=== PATIENT | female | born 1980 | race Two or more races ===

== ENCOUNTER 2017-01-08 19:09 | Emergency (ER) | payer OTHER ==
[~2017-01-08] VITALS: Ht 162.6 cm; Wt 80.0 kg
--- NOTE | ~2017-01-08 | CR282 ---
[facility]. [facility] A Service of [facility] & [facility] RADIOLOGY TEXT RESULTS PATIENT: HUE HAWKINS LOCATION: SED : 78 UNIT #: [id number] AGE: [address]: Cata Murray MD SEX: F ORDER DR: [id number] [address] [address] [id number] E MR#: [id number] Acc #: [id number] NAME: HUE HAWKINS : 1980 SEX: F STUDY DATE/TIME: 01/08/2017 21:32 UNIT: SED ROOM: STUDY DESCRIPTION: CR Wrist Min 3 View Rt Attending Physician: Cata Murray M.D. Ordering Physician: Cata Murray M.D. Primary Care Physician: No Primary Care Physician MEDICAL IMAGING REPORT This report is preliminary unless electronic signature is present. EXAM Right wrist. INDICATIONS Cut wrist with glass 3 hours ago. FINDINGS Three views of the right wrist were obtained. No fractures or foreign bodies are identified. IMPRESSION No fracture or foreign body is identified. Dictated by... Rodrigo Gabriel M.D. THIS IS AN ELECTRONICALLY VERIFIED REPORT Rodrigo Gabriel M.D. at 01/09/2017 7:58 PM EVELINA/jerry TD: 01/09/2017 19:21 JOB #: [id number] MEDICAL IMAGING REPORT Page 1 of 1
[~2017-01-08 19:09] MED LIST: BROMFED DM COU118 ML PO; NAPROSYN500 MG PO; NO MEDICATIONS
== END 2017-01-08 22:34 | disposition home or self-care (01) ==
LOC: SED 19:09
DX: S61.511A Laceration without foreign body of right wrist, initial encounter (principal); Z79.899 Other long term (current) drug therapy; W45.8XXA Other foreign body or object entering through skin, initial encounter; Y92.009 Unspecified place in unspecified non-institutional (private) residence as the place of occurrence of the external cause
CPT/HCPCS: 12002; 73110; 99283